=== PATIENT | female | born 1955 | race Caucasian/White ===

== ENCOUNTER 2020-06-18 19:19 | Emergency (ER) | payer MEDICARE, OTHER ==
[~2020-06-18 19:19] MED LIST: HYDROCODON-ACE1 EAC4 PO; NAPROXEN500 MG PO; PERCOCET 5-3251 EACH PO; PREMARIN0.9 MG PO; ZIAC 2.5-6.251 EACH PO
== END 2020-06-19 00:01 | disposition home or self-care (01) ==
LOC: FER 19:19
DX: S01.81XA Laceration without foreign body of other part of head, initial encounter (principal); I10 Essential (primary) hypertension; F17.210 Nicotine dependence, cigarettes, uncomplicated; Z23 Encounter for immunization; W01.0XXA Fall on same level from slipping, tripping and stumbling without subsequent striking against object, initial encounter; Y92.009 Unspecified place in unspecified non-institutional (private) residence as the place of occurrence of the external cause
CPT/HCPCS: 70450; 70486; 72125; 90471; 90714

== ENCOUNTER 2021-01-16 11:49 | Emergency (ER) | payer MEDICARE, OTHER ==
[2021-01-16] MEDS ORDERED: NORCO 5-325 TA1 EACH PO (16:33)
== END 2021-01-16 16:46 | disposition home or self-care (01) ==
LOC: FER 11:49
DX: S43.015A Anterior dislocation of left humerus, initial encounter (principal); I10 Essential (primary) hypertension; F17.210 Nicotine dependence, cigarettes, uncomplicated; Z23 Encounter for immunization; W01.0XXA Fall on same level from slipping, tripping and stumbling without subsequent striking against object, initial encounter
CPT/HCPCS: 73020; 73030; 73060; 90471; 90715; 99152; J2704